=== PATIENT | female | born 1995 | race Two or more races ===

== ENCOUNTER 2024-05-09 17:47 | Emergency (ER) | payer MEDICAID, SELFPAY ==
[2024-05-09 17:49] VITALS: BMI 26.4
[2024-05-09 18:27] VITALS: BP 102/65; PULSE 82; RESP 16; TEMP 36.8; O2SAT 100
[2024-05-09] MEDS: FAMOTIDINE 20 MG TABLET 40 MG PO (18:49)
[2024-05-09] MEDS: LIDOCAINE VISCOUS 2% 15 ML UDC PO (18:50)
[2024-05-09] MEDS: MG HYD/AL HYD/SIME (Maalox Reg) SUSP 30 ML UDC PO (18:50)
--- NOTE | 2024-05-09 18:55 | PD.EDCHEST ---
ED Chest Pain RME/HPI General Chief Complaint: Chest Pain Stated Complaint: CHEST PAIN Time Seen by Provider: 05/09/24 18:38 Arrival date/time: 05/09/24 17:47 28F with no significant PMH presents to ED with burning CP, especially after eating, after she took clindamycin and didn't follow the instructions to stay upright for 30 min after taking it. Limitations: no limitations Related Data Home Medications ?Medication ?Instructions ?Recorded ?Confirmed prenat.vits,gabe,[id number] 1 tab PO QDAY 11/25/17 11/25/17 ( Vitamin tablet) Previous Rx's ?Medication ?Instructions ?Recorded ibuprofen 800 mg tablet 800 mg PO QID PRN fever or pain 11/27/17 #30 tabs Allergies Allergy/AdvReac Type Severity Reaction Status Date / Time No Known Allergies Allergy Verified 05/09/24 17:55 Review of Systems Review of Systems Systems Reviewed: All systems reviewed, normal except as documented Constitutional Constitutional: Reports system reviewed and no additional complaints, except as documented, Denies fever(s) and Denies headache(s) ENT Ears, Nose, Mouth, and Throat: Denies disequilibrium and Denies headache(s) Cardiovascular Cardiovascular: Reports system reviewed and no additional complaints, except as documented, Reports as per HPI, Reports chest pain and Denies dyspnea Respiratory Respiratory: Reports system reviewed and no additional complaints, except as documented, Denies cough and Denies dyspnea Gastrointestinal Gastrointestinal: Reports system reviewed and no additional complaints, except as documented, Denies abdominal pain, Denies nausea and Denies vomiting Neurologic Neurologic: Reports system reviewed and no additional complaints, except as documented, Denies confusion, Denies disequilibrium and Denies headache(s) Psychiatric Psychiatric: Denies confusion Past Medical History Past Medical History NEUROLOGIC: Negative Neurological Disorders or Seizures CARDIAC: Negative Cardiac Disorders or Congestive Heart Failure RESPIRATORY: Negative Chronic Obstructive Pulmonary Disease (COPD) GASTROINTESTINAL: Negative Gastrointestinal Disorders, Hepatitis or Colorectal Cancer GENITOURINARY: Negative Genitourinary Disorders, Renal Disease or Prostate Cancer REPRODUCTIVE: Positive Previous Pregnancies (x1); Negative Breast Cancer or Testicular Cancer MUSCULOSKELETAL: Negative Musculoskeletal Disorders or Bone Cancer ENDOCRINE: Negative Endocrine Disorders, Diabetes Mellitus Type 1 or Diabetes Mellitus Type 2 HEMATOLOGIC: Negative Blood Disorders OTHER HISTORY: Positive Chicken Pox (as a child); Negative Hospitalization, Autoimmune Disease, Down Syndrome, Developmental Delay, Shingles, Falls, Blood Transfusions, Blood Transfusion Reaction, Anesthesia Reactions, Organ Transplant, Chemotherapy, Radiation Therapy, Hyperbaric Therapy, MRSA, VRSA, Vancomycin-Resistant Enterococci, Human Immunodeficiency Virus (HIV), Measles, Mumps, Rubella (Upper [place] Measles), Pertussis, Clostridium Difficile, Breast Cancer, Cervical Cancer, Colorectal Cancer, Lung Cancer, Ovarian Cancer, Prostate Cancer or Testicular Cancer Family History FAMILY HISTORY: Positive Family Cardiac Disorders (maternal aunt-HTN), Family Cancer (maternal aunt-uterine cancer) and Family Anesthesia Reaction (self for oral surgery: palpitations and SOB); Negative Family Psychiatric Problems, Family Respiratory Disorders, Family Gastrointestinal Problems or Family Surgery Surgical History SURGICAL: Positive Section (x1); Negative Organ Transplant Social History SMOKING STATUS: Never smoker SECOND HAND EXPOSURE: No ED Exam General Limitations: Present no limitations General appearance: Present alert and in no apparent distress Head Head exam: Present atraumatic Eye Eye exam: Present normal appearance, PERRL and EOMI ENT ENT exam: Present normal exam, normal oropharynx and mucous membranes moist Neck Neck exam: Present normal inspection, full ROM and trachea midline Chest Chest inspection: Present normal inspection and symmetric chest wall rise Respiratory Respiratory exam: Present normal lung sounds bilaterally Cardiovascular Cardiovascular exam: Present regular rate, normal rhythm and normal heart sounds Abdominal Exam Abdominal exam: Present soft and normal bowel sounds Extremities Exam Extremities exam: Present normal inspection and full ROM Back Exam Back exam: Present normal inspection and full ROM Neurological Exam Neurological exam: Present alert, oriented X3 and CN II-XII intact Psychiatric Psychiatric exam: Present normal affect and normal mood Skin Skin exam: Present warm, dry, intact and normal color Course Quality Measures none Orders Category Date Time Status Famotidine [Pepcid] Med 05/09/24 18:38 Discontinued 40 mg PO X1 ONE Lidocaine 2% Viscous [Xylocaine 2% Viscous] Med 05/09/24 18:38 Discontinued 15 ml PO X1 ONE mg Hyd/Al Hyd/Cruzito Susp [Maalox Susp] Med 05/09/24 18:38 Discontinued 30 ml PO X1 ONE Vital Signs Vital signs: Vital Signs Temperature 98.2 F 05/09/24 18:27 Pulse Rate 82 05/09/24 18:27 Respiratory Rate 16 05/09/24 18:27 Blood Pressure 102/65 05/09/24 18:27 Pulse Oximetry (%) 100 05/09/24 18:27 Oxygen Delivery Method Room Air 05/09/24 18:27 O2 at 100% on RA and WNLs Chest Pain MDM Narrative MDM Narrative:: 28F with no significant PMH presents to ED with burning CP, especially after eating, after she took clindamycin and didn't follow the instructions to stay upright for 30 min after taking it. Physical exam reveals clear ENT and lungs. RRR. Patient is afebrile, calm, and alert. PO challenge normal/passed. Likely esophageal irritation from not following instructions. Meds and international student counselor given. Patient data External records reviewed:: [facility] previous records Clinical information provided by:: patient Social determinants that could affect healthcare access:: none Patient has the following chronic illnesses:: none How is presenting disease/condition affected by chronic disease/condition?: no chronic disease Evaluation data The following diagnostics were reviewed and interpreted by me:: other (specify) (none) Lab and/or radiology exams considered but not ordered:: not ordered Interpretation Summary: n/a Medications / Prescriptions Medications or Prescriptions considered but not ordered:: ordered Medication administrations:: Medication Administration History Discontinued Medications Al Hydrox/Mg Hydrox/Simethicone (Mg Hyd/Al Hyd/Cruzito (Maalox Reg) Susp 30 Ml Udc) 30 ml PO X1 ONE Stop: 05/09/24 18:39 Last Admin: 05/09/24 18:50 Dose: 30 ml Documented By: Famotidine (Famotidine 20 Mg Tablet) 40 mg PO X1 ONE Stop: 05/09/24 18:39 Last Admin: 05/09/24 18:49 Dose: 40 mg Documented By: Lidocaine HCl (Lidocaine Viscous 2% 15 Ml Udc) 15 ml PO X1 ONE Stop: 05/09/24 18:39 Last Admin: 05/09/24 18:50 Dose: 15 ml Documented By: above Consultations Consultation(s) initiated? (list below): No Diagnosis Chest Pain Differential Diagnosis: fracture of rib, pneumothorax, stable angina, unstable angina pectoris, atypical chest pain, st elevation myocardial infarction, costochondritis, chest pain, biliary colic and other (drug adverse reaction) Most likely diagnosis given after review of the tests above:: drug adverse reaction Admission Indicated Admission indicated?: not indicated Admission Request Was there a request for admission?: No Disposition Plan Disposition Plan: Discharge Discharge Attestation Discharge Attestation: The patient and all family members were given an opportunity to ask questions and understood the discharge instructions. Discharge instructions specifically effects, indications for sooner follow up or return to the emergency department, and the expected course of current diagnosis. Patient condition: Stable Discharge Plan Plan Patient Disposition: HOME (Self Care) Disposition Comment: Stable Prescriptions/Referrals Prescriptions/Med Rec: No Action prenat.vits,gabe,[id number] [ Vitamin] Tablet 1 tab PO QDAY ibuprofen 800 mg tablet 800 mg PO QID PRN (Reason: fever or pain) Qty: 30 0RF Problem List Clinical Impression: Adverse drug reaction Patient/Caregiver Discharge Instructions Education Materials: ED Drug Reaction, Other Additional Instructions: Please follow-up with PCP within 24-48 hours and return immediately if symptoms worsen. Follow drug instructions. Print Language: Bruneian Stand Alone Forms: Patient Portal Info Letter LINDA/ROSALVA Supervising Physician LINDA/ROSALVA Supervising Physician: Dr. Diaz
== END 2024-05-09 19:32 | disposition home or self-care (01) ==
PROVIDERS: Emergency Provider Emergency Medicine
DX: R07.9 Chest pain, unspecified (principal); T36.8X5A Adverse effect of other systemic antibiotics, initial encounter
CPT/HCPCS: 99282; J3490; A9270

== ENCOUNTER 2024-10-28 08:00 | Day surgery (SDC) | payer MEDICAID, SELFPAY ==
[2024-10-27 08:56] VITALS: BMI 25.4
[2024-10-27 09:45] LABS: Basophils # (Auto) 0.1 Thou/mm3 (0.0-0.2); Basophils % (Auto) 1 % (0-2.5); Eosinophils # (Auto) 0.1 Thou/mm3 (0.0-0.5); Eosinophils % (Auto) 3 % (0-10); Hematocrit 43.1 % (36.0-46.0); Hemoglobin 14.5 g/dL (12.0-16.0); Immature Granulocytes Auto 0.02 Thou/mm3 (0.00-0.00); Lymphocytes # (Auto) 1.8 Thou/mm3 (1.0-4.8); Lymphocytes % (Auto) 34 % (10-50); Mean Corpuscular HGB Conc 33.6 g/dl (31.0-37.0); Mean Corpuscular Hemoglobin 30.7 pg (25.0-35.0); Mean Corpuscular Volume 91 fL (80-100); Monocytes # (Auto) 0.5 Thou/mm3 (0.0-0.8); Monocytes % (Auto) 9 % (0-12); Neutrophils # (Auto) 2.8 Thou/mm3 (1.8-7.7); Neutrophils % (Auto) 53 % (37-80); Nucleated Red Blood Cell # 0.00 Thou/mm3 (0.00-0.00); Nucleated Red Blood Cell % 0 /100 WBC (0); Platelet Count 207 Thou/mm3 (140-440); RDW Standard Deviation 40.4 fL (36.4-46.3); Red Blood Count 4.73 Miln/mm3 (4.00-5.20); White Blood Count 5.3 Thou/mm3 (3.6-11.0)
[2024-10-27 09:58] LABS: Beta HCG,Quantitative < 1 mIU/mL (<5.0)
--- NOTE | 2024-10-27 10:09 | PD.GYNHP ---
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 RENNER is a 29 year old female p2 , her efor diagnosti hystecroscopy IUD removal. Patinet had a unsucessful attempt at removal of IUD , in [facility] office. Strings were not seen , so a blind sweep was attempted to retrieve the IUD, where she didnot tolerate the exam. 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 Constitutional Constitutional: no acute distress Routine HEENT Exam Head: Present normocephalic and atraumatic Eye: Present EOMI and PERRL ENT: Present mucous membranes moist Routine Neck Exam Neck: Present supple and trachea midline Routine Respiratory Exam Respiratory: Present chest non-tender, lungs clear, normal breath sounds and no resp distress Routine Cardiovascular Exam Cardiovascular: Present RRR Routine Abdominal Exam Abdominal: Present soft and normoactive bowel sounds Routine Extremities Exam Extremities: Present full ROM Routine Skin Exam Skin: Present intact and dry Routine Neurological Exam Neurological: Present alert, oriented X3 and CN II-XII intact Routine Psychiatric Exam Psychiatric: Present normal affect and normal thought process PETROGRAPHY TEACHER - Results Labs 10/27/24 09:12 Labs: Short CBC 10/27/24 Range/Units 09:12 WBC 5.3 (3.6-11.0) Thou/mm3 Hgb 14.5 (12.0-16.0) g/dL Hct 43.1 (36.0-46.0) % Plt Count 207 (140-440) Thou/mm3 Impressions Impression: 29 y/o p2 , admitted for diagnostic hysteroscopy UD removal US shows [place]vin IUD is in endometrial cavity failed attempt retrieval in offie as the patinet didnot tolerate exam Quality Measures Quality Measures VTE prophylaxis
[2024-10-27 10:46] LABS: Hepatitis A Antibody IgM Non Reactive (Non React); Hepatitis B Core Antibody IgM Non Reactive (Non React); Hepatitis B Surface Antigen Non Reactive (Non React); Hepatitis C Antibody Non Reactive (Non React)
[2024-10-27 13:34] LABS: HIV 1/2 Confirmation* See Sep Rpt
[2024-10-28] VITALS (7 sets, daily range): BP systolic 118–138; BP diastolic 59–67; PULSE 71–91; RESP 14–20; TEMP 36.2–36.9; O2SAT 97–100; BMI 25.5
--- NOTE | 2024-10-28 10:09 | PD.GYNPROC ---
Operative Note - [employer] Procedure Date of procedure: 10/28/24 Procedure Performed: diagnosticv hysteroscopy IUD removal Indication: Inability to retrieve the IUD in [facility] office mising strings , US showing intaruterine placement Pre-Op diagnosis: same Post-Op diagnosis: same Anesthesia type: General Procedure description: The patient was seen prior to surgery. The potential benefits and risks of the procedure, the likelihood of success, and the problems related to recuperation have been discussed with patient who agrees to proceed. The possible results of nontreatment and significant alternatives to the proposed procedure have also been explained, along with the risks and benefits of the alternatives. Risks and benefits of chosen anesthetic/sedation and possible use of blood/blood products (if appropriate) were discussed.The patient was identified as john Lynch and the procedure verified. A time out was held reviewing the patient identifiers, procedure planned and allergies. At this point the procedure was begun. The patient was positioned and prepped in routine fashion in the dorsal lithotomy position using yellowfin stirups. On examination under anesthesia,the uterus was retroverted to a normal size. Bladder was drained by catheter. A weighted speculum was then placed into the patient's posterior vagina. A lisy was used to expose the anterior lip of the cervix which was then grasped by a single tooth tenaculum.The cervix was then very easily dilated to a size 6 Hegar dilator. The hysteroscope was then placed under direct visualization. Warm lactated Ringer's was used as a distention medium. The patient's uterus was found to have IUD with one arm perforating the endometrium . Pictures were taken.Using a hysteroscopic grasper , IUD was removed . There was minimal bleeding noted and tenaculum was removed. Hemostasis was acheived with a ringed forcep on anterior cervix. Estimated blood loss (ml): 5 Surgical staff Operation Date: 10/28/24 10:00 <No data on this case meets the specified criteria> Diagnosis Problem List Completed Was Problem List Reviewed/Reconciled?: Yes
--- NOTE | 2024-10-28 10:53 | SUR.PHASEI ---
1053: Pt. arrived with oral airway in place, vitals stable, breathing unlabored, no signs of distress, peripad in place CDI, no active bleed noted, report received from Maggie DAVENPORT and Miquel PURDY.
[2024-10-28] MEDS: ONDANSETRON INJ 2 MG/ML INJ 2 ML 4 MG IVP (11:15)
--- NOTE | 2024-10-28 11:45 | SUR.PHASEII ---
1145: Pt. AAOx4, vitals stable, breathing unlabored, no complaint of pain or nausea, peripad in place with scant amount of blood, pt. tolerated sips of water well, pt. ambulated to wheelchair with steady gait and no assist, no complications. Gave discharge instructions to the pt. and her ride using residential instructor, both verbalized understanding and had no further questions. Pt. left with all personal belongings.
== END 2024-10-28 11:45 | disposition home or self-care (01) ==
PROVIDERS: PCP Family Medicine; Referring Provider Student in an Organized Health Care Education/Training Program; Visit Provider Student in an Organized Health Care Education/Training Program
PROC: 0UJD8ZZ Inspection of Uterus and Cervix, Via Natural or Artificial Opening Endoscopic (ICD-10-PCS; CPT 58555; principal; 2024-10-28 10:00)
DX: Z30.432 Encounter for removal of intrauterine contraceptive device (principal)
CPT/HCPCS: 58562; 36415; 80074; 84702; 85025; 86701; 86702; 86703; 86850; 86900; 86901; A4217; A4649; J0131; J0690; J1100; J2405; J2704; J3010; J3490; A9270